=== PATIENT | male | born 1940 | race Caucasian/White ===

== ENCOUNTER 2018-03-19 13:47 | Emergency (ER) | payer OTHER ==
[~2018-03-19] VITALS: Ht 198.1 cm; Wt 102.1 kg
[2018-03-19 13:47] VITALS: BP_SYST 124
--- NOTE | 2018-03-19 13:47 | NUR ---
BROUGHT BACK TO BED #7 AND TRIAGED. REPORT GIVEN TO MY
--- NOTE | 2018-03-19 13:55 | NUR ---
PT STATES THAT HE STOOD UP QUICKLY AND HIT HIS HEAD ON CUPBOARD, ABRASION NOTED. DENIES K.O. DOES NOT WANT OR FEEL THE NEED FOR A CT EXAM. PT STATES THIS HAPPENS OFTEN SINCE HE IS 6'6.
--- NOTE | 2018-03-19 14:01 | NUR ---
DR VIERA AT BEDSIDE FOR EVALUATION
--- NOTE | 2018-03-19 14:20 | NUR ---
HEAD ABRASION CLEANED BY SACHIN FERRIS AND PT TOLERATED IT WELL. DR VIERA PLACING DERMABOND. NO CHANGES
--- NOTE | 2018-03-19 15:23 | NUR ---
Patient given written and verbal discharge instructions and verbalizes understanding. ER MD discussed with patient the results and treatment provided. Patient in stable condition. ID arm band removed. Rx of TYLENOL, BACITRACIN, KEFLEX given. Patient educated on pain management and to follow up with PMD. Pain Scale 0/10. Opportunity for questions provided and answered. Medication side effect fact sheet provided.
[2018-03-19 15:24] VITALS: BP_SYST 121
== END 2018-03-19 15:23 | disposition home or self-care (01) ==
LOC: SED 13:47
DX: S00.01XA Abrasion of scalp, initial encounter (principal); W22.8XXA Striking against or struck by other objects, initial encounter; Y93.89 Activity, other specified; Y92.89 Other specified places as the place of occurrence of the external cause; Y99.8 Other external cause status
CPT/HCPCS: 99283